=== PATIENT | male | born 1950 | race Caucasian/White ===

== ENCOUNTER → 2024-01-30 10:43 | Outpatient (REF) | payer MEDICARE, SELFPAY | LOC: RAD 10:43 | PROVIDERS: ATTENDING PHYSICIAN Family Medicine | DX: M25.362 Other instability, left knee (principal); M25.361 Other instability, right knee; R05.2 Subacute cough | CPT/HCPCS: 71046; 73564 ==

== ENCOUNTER → 2024-06-05 09:29 | Outpatient (REF) | payer MEDICARE, SELFPAY | LOC: RAD 09:29 | PROVIDERS: ATTENDING PHYSICIAN Family Medicine; FAMILY PHYSICIAN Physician Assistant Medical | DX: I70.209 Unspecified atherosclerosis of native arteries of extremities, unspecified extremity (principal) | CPT/HCPCS: 93925 ==